=== PATIENT | female | born 1960 | race Caucasian/White ===

== ENCOUNTER 2025-11-14 16:17 | Emergency (ER) | payer OTHER, SELFPAY ==
[2025-11-14] VITALS (9 sets, daily range): BP systolic 128–166; BP diastolic 77–86; PULSE 63–74; RESP 14–18; TEMP 37.1–37.2; O2SAT 92–99; BMI 24.7
--- NOTE | 2025-11-14 16:29 | ED_ITS ---
Discharge Plan Disposition Patient Disposition: Home, Self-Care Condition: Good Prescriptions Prescriptions: New ketorolac 10 mg tablet 10 mg PO Q8H 3 Days Qty: 9 0RF dicyclomine 10 mg capsule 20 mg PO BID 5 Days Qty: 20 0RF Referrals Follow up/Referrals: Provider,Referral, [Primary Care Provider, Medical] - See instructions Activity Restrictions/Add. Instructions Additional Instructions/Restrictions: You can take Toradol, 3 times a day and you can take the Bentyl as well. You can take Tylenol in addition for your symptoms. Stay well-hydrated. Do not take Toradol in addition to ibuprofen or other NSAIDs. Please return to the emergency department if you develop worsening abdominal pain blood in your stools, unable to have a bowel movement or if you are unable to tolerate oral intake. [facility] to rule out any reason to have small bowel to small bowel intussusception. Clinical Impressions Clinical Impression: Small bowel intussusception Instructions Patient Instructions: DI for Acute Abdominal Pain Print Language Print Language: [place] Citizen Discharge ED Provider: Nayely Thompson Adult HPI General Chief complaint: Abdominal Pain Stated complaint: moderate to severe lower stomach pain Time Seen by Provider: 11/14/25 16:29 History of Present Illness HPI narrative: Patient is a 65-year-old female with a past medical history of diverticulitis who presents to the emergency department with abdominal pain. She states she woke up this morning with abdominal pain and has been constant throughout the day. Patient states that her abdominal pain is in her right upper quadrant kind of migrates throughout her abdomen. Patient denies any diarrhea or blood in her stool. Patient denies any vomiting. Patient states that she tried some medications at home and took an oxycodone that she had for a previous surgery for her symptoms. Patient denies any fevers. Patient denies any chest pain or shortness of breath. Patient denies any recent exposures to symptoms. Patient denies any recent abdominal surgeries. Patient has had her gallbladder removed but denies any prior sections. Related Data Previous Rx's ?Medication ?Instructions ?Recorded dicyclomine 10 mg capsule 20 mg (2 x 10 mg) PO BID 5 d ays 11/14/25 #20 caps ketorolac 10 mg tablet 10 mg PO Q8H 3 days #9 tabs 11/14/25 Allergies Allergy/AdvReac Type Severity Reaction Status Date / Time Sulfa (Sulfonamide Allergy Hives Verified 11/14/25 16:47 Antibiotics) [facility] Disclaimer: The information contained in this section may have been updated after the patient was seen, as this information can be updated by other users. Social History Smoking Status: Never smoker alcohol intake: never current occupational status: other Travel in the last 8 weeks?: None ROS Obtained: Yes All systems reviewed & no additional complaints except as documented and Yes Systems reviewed as appropriate & no additional complaints except as documented Physical Exam General General appearance: alert and in no apparent distress Head Head exam: atraumatic, normocephalic and normal inspection Eye Eye exam: Present normal appearance, PERRL and EOMI; Absent scleral icterus ENT ENT exam: Present normal exam and normal external ear exam Neck Neck exam: Present normal inspection and full ROM Chest Chest inspection: Present normal inspection and symmetric chest wall rise Respiratory Respiratory exam: Present normal lung sounds bilaterally; Absent respiratory distress or wheezes Cardiovascular Cardiovascular exam: Present regular rate, normal rhythm and normal heart sounds Abdominal Exam Abdominal exam: Present soft, distention and tenderness (diffuse abdominal tenderness); Absent guarding or rebound Extremities Exam Extremities exam: Present normal inspection and full ROM Back Exam Back exam: Present normal inspection and full ROM Neurological Exam Neurological exam: Present alert and oriented X3 Psychiatric Psychiatric exam: Present normal affect and normal mood Skin Skin exam: Present warm and dry Medical Decision Making Medical Records Medical records reviewed: Yes I reviewed the patient's medical records. Screening: Per USPSTF and CDC recommendations, given the prevalence of disease in our region, it is our hospital?s policy to screen for HIV and viral Hepatitis for all patients aged 18 and over and those with ongoing risk factors. Franco Inquiry Pt receiving controlled substance: No Vital Signs: 11/14/25 16:20 11/14/25 17:16 11/14/25 17:20 Temperature 98.7 F Temperature Source Oral Pulse Rate 73 67 Pulse Rate [Left] 68 Respiratory Rate 14 Blood Pressure 166/83 H 163/85 H Blood Pressure [Right Arm] 158/83 H Blood Pressure Mean [Right Arm] 108 Blood Pressure Source [Right Arm] Automatic Cuff Blood Pressure Position [Right Arm] Sitting 02 Sat by Pulse Oximetry 99 94 L 92 L Oxygen Delivery Method Room Air Room Air Room Air 11/14/25 17:25 11/14/25 17:30 11/14/25 17:50 Temperature Temperature Source Pulse Rate 65 63 68 Pulse Rate [Left] Respiratory Rate Blood Pressure 159/82 H 164/86 H 166/77 H Blood Pressure [Right Arm] Blood Pressure Mean [Right Arm] Blood Pressure Source [Right Arm] Blood Pressure Position [Right Arm] 02 Sat by Pulse Oximetry 92 L 95 96 Oxygen Delivery Method Room Air Room Air Room Air 11/14/25 17:55 11/14/25 18:00 11/14/25 19:42 Temperature 98.9 F Temperature Source Oral Pulse Rate 69 68 74 Pulse Rate [Left] Respiratory Rate 18 Blood Pressure 154/77 H 152/79 H 128/78 Blood Pressure [Right Arm] Blood Pressure Mean [Right Arm] Blood Pressure Source [Right Arm] Blood Pressure Position [Right Arm] 02 Sat by Pulse Oximetry 93 L 95 Oxygen Delivery Method Room Air Room Air Room Air Lab Data Lab results reviewed: Yes I reviewed the patient's lab results. Lab Results 11/14/25 16:52: WBC 5.9, RBC 4.32, Hgb 12.8, Hct 38.7, MCV 89.6, MCH 29.6, MCHC 33.1, RDW 12.8, Plt Count 283, MPV 9.3, Neut % (Auto) 61.6, Lymph % (Auto) 23.5, [place] % (Auto) 9.7 H, Eos % (Auto) 4.4, Baso % (Auto) 0.5, Neut # (Auto) 3.6, Lymph # (Auto) 1.4, [place] # (Auto) 0.6, Eos # (Auto) 0.3, Baso # (Auto) 0.0, Sodium 141, Potassium 3.8, Chloride 108 H, Carbon Dioxide 26, Anion Gap 10.8, BUN 16, Creatinine 0.70, Estimated Creat Clear 64, Estimated GFR 84, Est GFR ( Amer) 102, Glucose 99, Lactate 0.6 L, Calcium 9.2, Total Bilirubin 0.4, AST 34, ALT 27, Alkaline Phosphatase 100, C-Reactive Protein 1.0, Total Protein 6.9, Albumin 4.3, Globulin 2.6, Albumin/Globulin Ratio 1.7, Lipase 205 11/14/25 19:10: SARS-CoV-2 (PCR) Not detected, Influenza Type A (PCR) Not detected, Influenza Type B (PCR) Not detected, RSV (PCR) Not detected, Rhinovirus (PCR) Not detected 11/14/25 16:52 11/14/25 16:52 Orders (Tests/Meds): ED MEDICATIONS Discontinued Medications Generic Name Dose Route Start Last Admin Trade Name Ronyq PRN Reason Stop Dose Admin Acetaminophen 1,000 mg 11/14/25 19:31 11/14/25 19:37 Acetaminophen 500mg Tab PO 11/14/25 19:32 1,000 mg ONCE ONE Administration Dicyclomine HCl 20 mg 11/14/25 18:42 11/14/25 18:52 Dicyclomine 10mg Capsule PO 11/14/25 18:43 20 mg ONCE ONE Administration Hydromorphone HCl 0.5 mg 11/14/25 19:30 11/14/25 19:37 Hydromorphone 2mg/Ml Syringe IV 11/14/25 19:31 0.5 mg ONCE ONE Administration Iopamidol 75 ml 11/14/25 17:40 11/14/25 17:41 Iopamidol-370 (76%);100ml Bottle IV 11/14/25 17:41 75 ml ONCE ONE Administration Ketorolac Tromethamine 30 mg 11/14/25 18:42 11/14/25 18:52 Ketorolac 30mg/Ml Vial IV 11/14/25 18:43 30 mg ONCE ONE Administration Morphine Sulfate 4 mg 11/14/25 16:38 11/14/25 17:12 Morphine 4mg/Ml Syringe IV 11/14/25 16:39 4 mg ONCE ONE Administration Ondansetron HCl 4 mg 11/14/25 16:38 11/14/25 17:12 Ondansetron 4mg/2ml Vial IV 11/14/25 16:39 4 mg ONCE ONE Administration Sodium Chloride 10 ml 11/14/25 17:40 11/14/25 17:41 Sodium Chloride 0.9% 10ml Syr (Rad Only) IV 11/14/25 17:41 10 ml ONCE ONE Administration ORDERS Category Date Time Status CT abdomen pelvis w con Stat Cat Scan 11/14/25 16:38 Completed CBC w/Auto Diff [Complete Blood Count Auto Diff] Stat Lab 11/14/25 16:52 Completed CMP [Comprehensive Metabolic Panel] Stat Lab 11/14/25 16:52 Completed CRP [C-Reactive Protein] Stat Lab 11/14/25 16:52 Completed Lactic Acid Stat Lab 11/14/25 16:52 Completed Lipase Stat Lab 11/14/25 16:52 Completed Mini Respiratory Panel Stat Lab 11/14/25 19:10 Completed Medical Decision Narrative: Patient is a 65-year-old female with a past medical history of diverticulitis who presents to the emergency department with abdominal pain. On arrival, patient was hemodynamically stable with unremarkable vital signs. Differential includes but not limited to: Diverticulitis, gastroenteritis, bowel obstruction, urinary tract infection, amongst others. Patient's labs were reviewed and interpreted by myself: CBC showed no leukocytosis, hemoglobin was stable. CMP was unremarkable. Lipase was normal. [place] swab was negative. Lactate was normal. CT scan of the abdomen showed small bowel to small bowel intussusception with no other acute pathology. Patient had been given morphine in the emergency department but stated that the Toradol improved her symptoms the most. At this time, given that patient only had a small bowel to small bowel deception without small bowel to large bowel, I felt the patient was appropriate for discharge. Patient was sent with Toradol and Zoyl to take patient was given additional dose of pain medications here in the emergency department. Patient was able to tolerate oral intake and patient wished to discharge home. I did recommend that patient follow-up with GI as patient may need an endoscopy to rule out any mass or other lead point for her intussusception. Patient was otherwise given return precautions for any bloody diarrhea worsening abdominal pain inability to tolerate oral intake or any other acute concerns. [facility] therefore she will follow-up with her primary care provider to see GI. Patient was otherwise discharged home in stable condition return precautions were discussed. Critical Care Critical Care Time Critical Care Time: No
--- NOTE | 2025-11-14 16:38 | CT_ITS ---
PROCEDURE INFORMATION: Exam: CT Abdomen And Pelvis With Contrast Exam date and time: 11/14/2025 5:38 PM Age: 65 years old Clinical indication: Abdominal pain; Additional info: HX diverticu, llq/rlq pain TECHNIQUE: Imaging protocol: Computed tomography of the abdomen and pelvis with contrast. Radiation optimization: All CT scans at this facility use at least one of these dose optimization techniques: automated exposure control; mA and/or kV adjustment per patient size (includes targeted exams where dose is matched to clinical indication); or iterative reconstruction. Contrast material: ISOVUE; Contrast volume: 75 ml; Contrast route: IV; COMPARISON: No relevant prior studies available. FINDINGS: Lungs: Bibasilar atelectasis. Calcified granulomata in the right middle lobe. Liver: Unremarkable. No abnormally enhancing liver lesions. Gallbladder and biliary ducts: Gallbladder/biliary ducts: Mild intra and extrahepatic biliary ductal dilatation likely on the basis of cholecystectomy. No radiopaque ductal stone. Pancreas: Unremarkable. No pancreatic ductal dilatation. Spleen: Unremarkable. Adrenal glands: The adrenal glands are unremarkable. Kidneys and ureters: Symmetric bilateral renal enhancement. No hydronephrosis. No radiopaque renal or urinary tract stones. Bilateral renal cortical hypoattenuating foci too small to characterize. Stomach and bowel: Stomach is unremarkable. Small bowel to small bowel intussusception in the left upper quadrant (series 1001, images 32-34). No bowel obstruction. Diverticulosis of the descending and sigmoid colon without acute diverticulitis. Appendix: Appendix is unremarkable. Intraperitoneal space: No ascites or intraperitoneal free air. Vasculature: Unremarkable. Lymph nodes: Unremarkable. No enlarged lymph nodes. Urinary bladder: The urinary bladder is underdistended, limiting its evaluation. Reproductive: Uterus and adnexa are unremarkable. Bones/joints: Degenerative changes of the spine. No acute fracture or dislocation. Soft tissues: Unremarkable. IMPRESSION: 1. Small bowel to small bowel intussusception in the left upper quadrant, likely transient. No bowel obstruction. 2. Colonic diverticulosis without acute diverticulitis.
[2025-11-14 17:00] LABS: Hematocrit 38.7 % (37.0-47.0); Hemoglobin 12.8 g/dL (12.2-16.2); Immature Granulocytes % 0.3 %; Mean Corpuscular HGB Conc 33.1 g/dL (31.8-35.4); Mean Corpuscular Hemoglobin 29.6 pg (27.0-31.2); Mean Corpuscular Volume 89.6 fl (81-99); Nucleated Red Blood Cells % 0 %; Platelet Count 283 K/mm3 (142-424); Red Blood Count 4.32 M/mm3 (4.20-5.40); Red Cell Distribution Width-SD 42.0 fL; White Blood Count 5.9 K/mm3 (4.8-10.8)
--- OUTSIDE RECORDS SUMMARY | 2025-11-14 17:05 | XMS_ITS | Patient Health Record ---
Author Organization [facility] C Address [address] [place] [address] Care Team Providers Care Tight Barrel Inspector Name Role Phone None, None Primary Care Provider Unavailabl e Allergies Allergen (clinical drug ingredient) Drug/Non Drug Allergy documented on EMR Reaction Allergy Type Onset Date Status sulfamethoxazole / trimethoprim Sulfamethoxazole-Tr imethoprim hives Drug Allergy Active Reason For Referral No Information Medications Medication SIG (Take, Route, Frequency, Duration) Notes Start Date End Date Status Propranolol HCl 10 MG 1 tablet Orally Once a day Active Vitamin B Complex - as directed Orally Active Multivitamin - as directed Orally O nce a day Active PARoxetine HCl 10 MG 5 mL in the morning orally once a day Active Tylenol 325 MG 1 tablet as needed O rally every 4 hrs 12/22/2023 Not-Taking Immunizations Vaccine Route Administration Date Status Comme nts Flu Vaccine (Given in Past) Unspecified Unknown 12/24/2022 Administered Problems Problem Type SNOMED Code ICD Code Onset Dates Problem Status W/U Status Risk Notes Problem Obesity (589263545) Obesity (BMI 30-39.9) (E66.9) Active confirmed Problem Body mass index 30.00 to 34.99 (964219668888 107) Body mass index [BMI] 31.0-31.9, adult (Z68.31) Active confirmed Plan Of Treatment No Information Insurance Providers Payer Name Payer Address Payer Phone Subscriber Number Group Number Insured Name Patient Relationship to Insured Coverage Start Date Coverage End Date [employer] [place] [address] [place] [address] [id number] EltonHeidi lopez Self - patient is the insured Medical (General) History Medical History History ICD Code SEASONAL ALLERGIES ANXIETY benign lung nodules covid and flu 2021 arthritis migraines Surgical History Surgery Date(Month/Year) RT HAND GALL BLADDER Hospitalization History Reason Date(Month/Year) PANCREATITIS 2000
[2025-11-14 17:09] LABS: Albumin Level 4.3 g/dl (3.5-5.0); Chloride 108 mmol/L (98-107); Potassium 3.8 mmoL/L (3.5-5.1); Sodium 141 mmol/L (136-145)
[2025-11-14 17:12] LABS: Alanine Aminotransferase 27 U/L (12-78); Albumin/Globulin Ratio 1.7 (1.1-1.8); Alkaline Phosphatase 100 U/L (38-126); Anion Gap 10.8 mEq/L (5-15); Aspartate Amino Transferase 34 U/L (14-36); Bilirubin,Total 0.4 mg/dl (0.2-1.3); Blood Urea Nitrogen 16 mg/dl (7-17); Calcium 9.2 mg/dl (8.4-10.2); Carbon Dioxide 26 mmol/L (22.0-30.0); Creatinine Clearance Estimated 64 mL/min (50-200); Creatinine,Serum 0.70 mg/dl (0.52-1.04); Estimated Glomerular Filt Rate 84 ml/min (>60); GFR (African American) 102 ML/MIN (>60); Globulin 2.6 g/dL (1.3-3.2); Glucose 99 mg/dl (74-100); Lipase 205 U/L (23-300); Total Protein,Serum 6.9 g/dl (6.3-8.2)
[2025-11-14] MEDS: ONDANSETRON 4MG/2ML VIAL 4 MG IV (17:12)
[2025-11-14] MEDS: MORPHINE 4MG/ML SYRINGE 4 MG IV (17:12)
[2025-11-14 17:34] LABS: C-Reactive Protein 1.0 mg/L (0-4)
[2025-11-14] MEDS: IOPAMIDOL-370 (76%);100ML BOTTLE 75 ML IV (17:41)
[2025-11-14] MEDS: SODIUM CHLORIDE 0.9% 10ML SYR (RAD ONLY) 10 ML IV (17:41)
[2025-11-14] MEDS: KETOROLAC 30MG/ML VIAL 30 MG IV (18:52)
[2025-11-14 19:16] LABS: Coronavirus 19, PCR Not Detected (NotDetected); Influenza A, PCR Not Detected (NotDetected); Influenza B, PCR Not Detected (NotDetected)
[2025-11-14] MEDS: HYDROMORPHONE 2MG/ML SYRINGE 0.5 MG IV (19:37)
[2025-11-14] MEDS: ACETAMINOPHEN 500MG TAB 1000 MG PO (19:37)
== END 2025-11-14 19:55 | disposition home or self-care (01) ==
PROVIDERS: Emergency Provider Student in an Organized Health Care Education/Training Program
DX: K56.1 Intussusception (principal); R10.84 Generalized abdominal pain
CPT/HCPCS: 74177; 80053; 83605; 83690; 85025; 86140; 87631; 96374; 96375; 99285; J1171; J1885; J2270; J2405; Q9967